=== PATIENT | female | born 1995 | race African-American/Black ===

== ENCOUNTER 2018-02-20 21:23 | Emergency (ER) | payer MEDICAID, OTHER ==
[~2018-02-20] VITALS: Ht 167.6 cm; Wt 66.0 kg
[2018-02-20] MEDS ORDERED: KETOROLAC 60MG/2ML VIAL IM STA (22:18)
[2018-02-20] MEDS ORDERED: SILVER SULFADIAZINE 1% CREAM 50GM TOP STA (22:18)
[2018-02-20] MEDS ORDERED: MORPHINE SULFATE 4 MG/ML CPJ (NOT FOR IM USE) IV STA (22:18)
[2018-02-20] MEDS ORDERED: SODIUM CHLORIDE 0.9% 1,000 ML IV ONE (22:18)
[2018-02-20] MEDS: KETOROLAC 30MG/ML VIAL IV STA ×2 (22:34→22:37)
[2018-02-20 22:37] VITALS: BP 124/76
== END 2018-02-21 00:29 | disposition home or self-care (01) ==
LOC: ER 21:23
DX: T25.221A Burn of second degree of right foot, initial encounter (principal); X12.XXXA Contact with other hot fluids, initial encounter; Y93.89 Activity, other specified; Y92.89 Other specified places as the place of occurrence of the external cause; R03.0 Elevated blood-pressure reading, without diagnosis of hypertension
CPT/HCPCS: 16020; 96374; 96375; 99284; J1885; J2270; J7030